=== PATIENT | male | born 2000 | race Hispanic/Latino ===

== ENCOUNTER 2022-09-09 18:09 | Emergency (ER) | payer OTHER, SELFPAY ==
[2022-09-09] MEDS ORDERED: Morphine 4 MG/ML VIAL ONE (18:34)
[2022-09-09] MEDS ORDERED: HYDROcodone/Acetaminophen 5/325 mg Tablet ONE (21:19)
== END 2022-09-09 21:28 | disposition home or self-care (01) ==
LOC: MADERS 18:09 → EDBD 18:09 → MADERS 21:28
DX: S52.002A Unspecified fracture of upper end of left ulna, initial encounter for closed fracture (principal); W01.198A Fall on same level from slipping, tripping and stumbling with subsequent striking against other object, initial encounter
CPT/HCPCS: 29105; 96372; J2270